=== PATIENT | male | born 1975 | race Two or more races ===

== ENCOUNTER 2017-01-10 19:24 | Emergency (ER) | payer SELFPAY ==
[~2017-01-10] VITALS: Ht 170.2 cm; Wt 83.9 kg
[~2017-01-10 19:24] MED LIST: ALPR1TAB6 PO; BUSP5TAB PO; CYCL10TA2 PO; DULO60CA6 PO; GEMF600T3 PO; HYDR-971 PO; IBUP-1007 PO; METH-37 PO; PANT40TA3 PO; PARO10TA24 PO; PRED20TA PO; PSEU120T9 PO; RANI150T6 PO; VENL75CA PO
[2017-01-10 19:35] VITALS: BP 124/74
[2017-01-10] MEDS ORDERED: TRAM-29 PO (19:54)
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
== END 2017-01-10 20:00 | disposition home or self-care (01) ==
LOC: ER 19:24
DX: G89.29 Other chronic pain (principal); M54.40 Lumbago with sciatica, unspecified side; M54.2 Cervicalgia; F43.10 Post-traumatic stress disorder, unspecified; E78.00 Pure hypercholesterolemia, unspecified; Z98.890 Other specified postprocedural states
CPT/HCPCS: 99283

== ENCOUNTER 2017-03-03 22:14 | Emergency (ER) | payer SELFPAY ==
[~2017-03-03] VITALS: Ht 170.2 cm; Wt 86.2 kg
[~2017-03-03 22:14] MED LIST changes: +BUSP15TA PO; +CLON0.5T3 PO; +DULO30CA43 PO; -PARO10TA24 PO; +PARO10TA57 PO; +TRAM-48 PO
[2017-03-03 22:25] VITALS: BP 134/87
[2017-03-03] MEDS ORDERED: CYCLOBENZAPRINE 10 MG TABLET. PO ONE (22:45)
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
[2017-03-03] MEDS ORDERED: CYCL10TA2 PO (23:34)
== END 2017-03-03 23:54 | disposition home or self-care (01) ==
LOC: ER 22:14
DX: R51 Headache (principal); M54.5 Low back pain; M54.2 Cervicalgia; E78.00 Pure hypercholesterolemia, unspecified; G89.29 Other chronic pain; F43.10 Post-traumatic stress disorder, unspecified; V57.6XXA Passenger in pick-up truck or van injured in collision with fixed or stationary object in traffic accident, initial encounter; Y93.89 Activity, other specified; Y92.410 Unspecified street and highway as the place of occurrence of the external cause; Y99.8 Other external cause status
CPT/HCPCS: 70450; 70486; 72125; 99284-25

== ENCOUNTER 2017-03-10 21:07 | Emergency (ER) | payer SELFPAY ==
[~2017-03-10] VITALS: Ht 170.2 cm; Wt 83.9 kg
[2017-03-10 21:18] VITALS: BP 129/75
[2017-03-10] MEDS ORDERED: CYCL10TA2 PO (21:42)
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
== END 2017-03-10 21:50 | disposition home or self-care (01) ==
LOC: ER 21:07
DX: M54.42 Lumbago with sciatica, left side (principal); G89.29 Other chronic pain; E78.00 Pure hypercholesterolemia, unspecified; F43.10 Post-traumatic stress disorder, unspecified; Z86.14 Personal history of Methicillin resistant Staphylococcus aureus infection; Z98.890 Other specified postprocedural states; V49.88XA Car occupant (driver) (passenger) injured in other specified transport accidents, initial encounter; Y93.89 Activity, other specified; Y99.8 Other external cause status; Y92.488 Other paved roadways as the place of occurrence of the external cause
CPT/HCPCS: 99283

== ENCOUNTER 2017-06-08 21:15 | Emergency (ER) | payer SELFPAY ==
[2017-06-08 21:22] VITALS: BP 120/78
[2017-06-08] MEDS ORDERED: SULF1TAB24 PO (21:38)
--- NOTE | 2017-06-08 21:38 | PHYS DOC ---
Past Medical History Past Medical History: Anxiety, Depression, High Cholesterol, MRSA, Other Additional Past Medical Histor: PTSD, CHRONIC BACK PAIN, SCIATICA, MRSA Past Surgical History: Other Additional Past Surgical Histo: R THIGH SX Alcohol Use: None Drug Use: None Adult General Chief Complaint Chief Complaint: ABSCESS HPI HPI Patient is a 41 year old male who presents to be evaluated for an abscess on the left groin that he noted this morning. Patient states the abscess "busted up " this morning and is draining. Patient denies any fever. He states he has history of MRSA. Review of Systems Review of Systems Constitutional: See history of present illness Musculoskeletal: Denies back pain or joint pain [] Integument: abscess on the left groin Neurologic: Denies headache, focal weakness or sensory changes [] Allergies Allergies Allergies Coded Allergies Type Severity Reaction Last Updated Verified No Known Drug Allergies 04/28/14 No Physical Exam Physical Exam Constitutional: Well developed, well nourished, no acute distress, non-toxic appearance. [] Skin: Left inner thigh with a tiny open Abscess approximately 0.3 x 0.3 cm with surrounding cellulitis. The area is warm tender to touch but not fluctuant Back: No tenderness, no CVA tenderness. [] Extremities: No tenderness, no cyanosis, no clubbing, ROM intact, no edema. [] Neurologic: Alert and oriented X 3, normal motor function, normal sensory function, no focal deficits noted. [] Psychologic: Affect normal, judgement normal, mood normal. [] Current Patient Data Vital Signs Vital Signs Date Time Temp Pulse Resp B/P (MAP) Pulse Ox O2 Delivery O2 Flow Rate FiO2 06/08/17 21:22 97.9 70 18 99 Room Air 97.9 EKG EKG [] Radiology/Procedures Radiology/Procedures [] Course & Med Decision Making Course & Med Decision Making Pertinent Labs and Imaging studies reviewed. (See chart for details) Patient has an abscess on the left inner thigh that is open and draining. His tetanus is up-to-date. He has history of MRSA. We discharged him on Bactrim. Instructed to keep the area clean and dry. Provided return precautions and discharged in stable condition. Dragon Disclaimer Dragon Disclaimer This electronic medical record was generated, in whole or in part, using a voice recognition dictation system. Departure Departure Impression: Primary Impression: Cellulitis and abscess of left lower extremity Disposition: HOME, SELF-CARE Condition: STABLE Referrals: ANDREI MUNOZ MD (PCP) Follow-up with your doctor in 1-2 weeks Patient Instructions: Abscess Additional Instructions: You were seen for an abscess on the left inner thigh. Keep the area clean and dry. Apply warm compresses to the area twice a day. Take antibiotics as prescribed until completed. Return to the emergency room if symptoms worsen. Scripts Sulfamethoxazole/Trimethoprim (BACTRIM DS TABLET) 1 Each Tablet 1 TAB PO BID, #20 TAB Prov: WAYLON KONG APRN 06/08/17 WAYLON KONG APRN Jun 08, 2017 21:38
== END 2017-06-08 21:38 | disposition home or self-care (01) ==
LOC: ER 21:15
DX: L03.116 Cellulitis of left lower limb (principal); E78.00 Pure hypercholesterolemia, unspecified; F43.10 Post-traumatic stress disorder, unspecified; Z86.14 Personal history of Methicillin resistant Staphylococcus aureus infection; G89.29 Other chronic pain
CPT/HCPCS: 99283

== ENCOUNTER 2019-11-19 15:08 | Emergency (ER) | payer SELFPAY ==
[~2019-11-19] VITALS: Ht 170.2 cm; Wt 90.0 kg
[~2019-11-19 15:08] MED LIST changes: +ASPI-630 PO; +CLON-77 PO; -CLON0.5T3 PO; -DULO30CA43 PO; +DULO30CA44 PO; -GEMF600T3 PO; +GEMF600T8 PO; +HYDR-3164 PO; -HYDR-971 PO; -PANT40TA3 PO; +PANT40TA77 PO; +RANI-376 PO; -RANI150T6 PO; +SULF1TAB24 PO
[2019-11-19] MEDS ORDERED: IV NORMAL SALINE 1000ML BAG 1,000 ML IV ONE (16:00)
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
[2019-11-19 16:16] LABS: BASO # 0.1 x10^3/uL (0.0-0.2); BASO % 1 % (0-3); EOS # 0.2 x10^3/uL (0.0-0.7); EOS % 4 % (0-3); HEMATOCRIT 42.1 % (39.0-53.0); HEMOGLOBIN 14.2 g/dL (13.0-17.5); LYMPH % 33 % (24-48); MEAN CORPUSCULAR HEMOGLOBIN 33 pg (25-35); MEAN CORPUSCULAR HGB CONC 34 g/dL (31-37); MEAN CORPUSCULAR VOLUME 97 fL (79-100); MONO # 0.5 x10^3/uL (0.0-1.1); MONO % 8 % (0-9); NEUT # 3.4 x10^3/uL (1.8-7.7); NEUT % 55 % (31-73); PLATELET COUNT 220 x10^3/uL (140-400); RED BLOOD COUNT 4.34 x10^6/uL (4.30-5.70); RED CELL DISTRIBUTION WIDTH 13.6 % (11.5-14.5); WHITE BLOOD COUNT 6.1 x10^3/uL (4.0-11.0)
[2019-11-19 16:28] LABS: CALCIUM 8.9 mg/dL (8.5-10.1); CREATININE 1.1 mg/dL (0.7-1.3); GFR 72.4; POTASSIUM 4.5 mmol/L (3.5-5.1)
[2019-11-19 16:40] LABS: TOTAL BILIRUBIN 0.2 mg/dL (0.2-1.0); TOTAL PROTEIN 8.2 g/dL (6.4-8.2)
[2019-11-19] MEDS ORDERED: IOHEXOL 300 MG/ML 100ML VIAL. IV ONE (16:45)
[2019-11-19] MEDS ORDERED: CONTRAST GIVEN. MC PRN (16:45)
--- NOTE | 2019-11-19 17:11 | RAD ---
Exam: CT of abdomen and pelvis with contrast INDICATION: Wound over left lower back, concern for deep abscess TECHNIQUE: Sequential axial images through the abdomen and pelvis obtained following the administration of 75 mL of Omni 300 IV contrast. Sagittal and coronal reformatted images were reconstructed from the axial data and reviewed. Comparisons: None FINDINGS: Heart size is normal. No pericardial effusion. Strandy opacities at the dependent portion lungs likely representing atelectasis. No pleural effusion. Liver, spleen, pancreas, gallbladder and adrenals are unremarkable. Kidneys demonstrate symmetric enhancement. No perinephric inflammation or hydronephrosis. No renal or ureteral calculi are identified. Bladder is decompressed not well evaluated. Prostate is not enlarged. Extensive diverticulosis is noted throughout the descending colon without evidence of acute diverticulitis. Appendix is normal. No free intra-abdominal air or fluid. No obstruction. Abdominal aorta has a normal course and caliber. Abdominal vasculature is patent. No enlarged intra-abdominal lymph nodes are identified. Subcutaneous fat stranding is noted in the left lower back. Mild skin thickening is also noted. No focal fluid collection is identified. No suspicious osseous lesions or acute fractures. IMPRESSION: Skin thickening and underlying subcutaneous fat stranding in the left lower back. Findings may relate to cellulitis. No focal fluid collections suggest abscess. Exposure: One or more of the following in the visualized dose reduction techniques were utilized for this examination: 1. Automated exposure control 2. Adjustment of the MA and/or KV according to patient size 3. Use of iterative of reconstructive technique Electronically signed by: Alex Vinson MD (11/19/2019 5:08 PM) [id number]
[2019-11-19] MEDS ORDERED: CEPH-264 PO (17:17)
[2019-11-19] MEDS ORDERED: DOXY100C2 PO (17:17)
[2019-11-19 18:00] VITALS: BP 127/73
== END 2019-11-19 18:10 | disposition home or self-care (01) ==
LOC: ER 15:08
DX: S31.000A Unspecified open wound of lower back and pelvis without penetration into retroperitoneum, initial encounter (principal); L03.312 Cellulitis of back [any part except buttock and flank]; E78.00 Pure hypercholesterolemia, unspecified; G89.29 Other chronic pain; Z86.14 Personal history of Methicillin resistant Staphylococcus aureus infection; F43.10 Post-traumatic stress disorder, unspecified; F17.200 Nicotine dependence, unspecified, uncomplicated; X58.XXXA Exposure to other specified factors, initial encounter; Y93.89 Activity, other specified; Y92.89 Other specified places as the place of occurrence of the external cause; Y99.8 Other external cause status
CPT/HCPCS: 36415; 74177; 80053; 85025; 99285; J7030; Q9967

== ENCOUNTER 2020-01-11 20:50 | Emergency (ER) | payer OTHER ==
[~2020-01-11] VITALS: Ht 170.2 cm; Wt 86.2 kg
[~2020-01-11 20:50] MED LIST changes: +CEPH-264 PO; +DOXY100C2 PO
[2020-01-11] MEDS ORDERED: ZIPRASIDONE IM 20 MG VIAL. IM ONE ×2 (20:58→21:15)
[2020-01-11 21:16] LABS: BILIRUBIN,URINE NEGATIVE (NEG); CLARITY,URINE CLEAR; COLOR,URINE YELLOW; NITRITE,URINE NEGATIVE (NEG); PH,URINE 5.5 (<5.0-8.0); PROTEIN,URINE NEGATIVE (NEG-TRACE); UROBILINOGEN,URINE 0.2 mg/dL (0.2 mg/dL)
[2020-01-11 21:23] LABS: BACTERIA,URINE 0 /HPF (0-FEW); RBC,URINE 0 /HPF (0-2); SQUAMOUS EPITHELIAL CELL,UR OCC /LPF; WBC,URINE 0 /HPF (0-4)
[2020-01-11 21:27] LABS: BARBITURATES NEG (NEG); BENZODIAZEPINES NEG (NEG); CANNABINOIDS NEG (NEG); COCAINE NEG (NEG); METHADONE NEG (NEG); OPIATES NEG (NEG); PHENCYCLIDINE NEG (NEG)
[2020-01-11 21:29] LABS: AMPHETAMINE/METHAMPHETAMINE NEG (NEG)
[2020-01-11] MEDS ORDERED: LORazepam 0.5 MG TABLET PO ONE (21:30)
[2020-01-11 21:35] LABS: BASO # 0.1 x10^3/uL (0.0-0.2); BASO % 1 % (0-3); EOS # 0.1 x10^3/uL (0.0-0.7); EOS % 1 % (0-3); HEMOGLOBIN 15.1 g/dL (13.0-17.5); LYMPH # 1.8 x10^3/uL (1.0-4.8); LYMPH % 28 % (24-48); MEAN CORPUSCULAR HEMOGLOBIN 31 pg (25-35); MEAN CORPUSCULAR HGB CONC 34 g/dL (31-37); MEAN CORPUSCULAR VOLUME 93 fL (79-100); MONO # 0.4 x10^3/uL (0.0-1.1); MONO % 6 % (0-9); NEUT # 4.2 x10^3/uL (1.8-7.7); NEUT % 65 % (31-73); PLATELET COUNT 262 x10^3/uL (140-400); RED BLOOD COUNT 4.81 x10^6/uL (4.30-5.70); WHITE BLOOD COUNT 6.6 x10^3/uL (4.0-11.0)
[2020-01-11 21:45] LABS: CALCIUM 8.7 mg/dL (8.5-10.1); GFR 80.8; POTASSIUM 3.3 mmol/L (3.5-5.1)
[2020-01-11] MEDS ORDERED: MULTIVIT INFUSN,ADULT 4,VIT K 10 ML, FOLIC ACID INJ 1 MG in IV NORMAL SALINE 1000ML BAG... IV ONE (21:45)
[2020-01-11 21:51] LABS: ALBUMIN 3.8 g/dL (3.4-5.0); DIRECT BILIRUBIN 0.1 mg/dL (0.0-0.2); MAGNESIUM 1.7 mg/dL (1.8-2.4); TOTAL BILIRUBIN 0.2 mg/dL (0.2-1.0); TOTAL PROTEIN 7.8 g/dL (6.4-8.2)
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
[2020-01-11] MEDS ORDERED: IV NORMAL SALINE 1000ML BAG 1,000 ML IV ONE (23:00)
[2020-01-12 05:46] VITALS: BP 111/58
--- NOTE | 2020-01-14 08:35 | EKG ---
[facility] [address] [place] [address] Test Date: 2020-01-11 Test Time: 21:35:11 Pat Name: CHITO BOBO Department: Room: Gender: M [employer]: : 1975 Requested By: MERA SALEH Order Number: [id number] Reading MD: Mark Manning Measurements Intervals [place] Rate: 97 P: 42 ND: 126 QRS: 39 QRSD: 108 T: 12 QT: 354 QTc: 454 Interpretive Statements SINUS RHYTHM Electronically Signed On 01-14-2020 10:58:49 CDT by Mark Manning
== END 2020-01-12 06:00 | disposition home or self-care (01) ==
LOC: ER 20:50
DX: F10.920 Alcohol use, unspecified with intoxication, uncomplicated (principal); F43.0 Acute stress reaction; F32.9 Major depressive disorder, single episode, unspecified; E78.00 Pure hypercholesterolemia, unspecified; G89.29 Other chronic pain; F43.10 Post-traumatic stress disorder, unspecified; F17.200 Nicotine dependence, unspecified, uncomplicated; Z86.14 Personal history of Methicillin resistant Staphylococcus aureus infection
CPT/HCPCS: 36415; 80048; 80076; 80307; 81001; 83735; 85025; 96365; 96372; 99285; G0480; J3486; J3490; J7030; 93005

== ENCOUNTER 2020-03-03 21:20 | Observation (INO) | payer OTHER ==
[~2020-03-03] VITALS: Ht 167.6 cm; Wt 75.0 kg
[2020-03-03] MEDS ORDERED: IV NORMAL SALINE 1000ML BAG 1,000 ML IV ONE ×2 (21:30→23:15)
[2020-03-03 21:44] LABS: BASO # 0.1 x10^3/uL (0.0-0.2); BASO % 1 % (0-3); EOS % 0 % (0-3); HEMATOCRIT 45.6 % (39.0-53.0); HEMOGLOBIN 15.7 g/dL (13.0-17.5); LYMPH # 2.5 x10^3/uL (1.0-4.8); LYMPH % 22 % (24-48); MEAN CORPUSCULAR HEMOGLOBIN 31 pg (25-35); MEAN CORPUSCULAR HGB CONC 34 g/dL (31-37); MEAN CORPUSCULAR VOLUME 91 fL (79-100); MONO # 1.1 x10^3/uL (0.0-1.1); MONO % 9 % (0-9); NEUT % 68 % (31-73); PLATELET COUNT 289 x10^3/uL (140-400); RED BLOOD COUNT 5.02 x10^6/uL (4.30-5.70); RED CELL DISTRIBUTION WIDTH 14.4 % (11.5-14.5); WHITE BLOOD COUNT 11.7 x10^3/uL (4.0-11.0)
--- NOTE | 2020-03-03 21:47 | PHYS DOC ---
Past Medical History Past Medical History: Anxiety, Depression, High Cholesterol, MRSA, Other Additional Past Medical Histor: PTSD, CHRONIC BACK PAIN, SCIATICA, ETOH, Past Surgical History: Other Additional Past Surgical Histo: R THIGH SX Smoking Status: Current Every Day Smoker Alcohol Use: Heavy Drug Use: Other General Adult EDM: Chief Complaint: ALTERED MENTAL STATUS HPI: HPI: 44-year-old male presents via EMS for evaluation of altered mental status. Per history patient has not been acting his normal self for the last 4 hours. EMS states patient has a history of psychiatric disorder. The exact medications patient is on is unknown. Patient is very lethargic but he is alert. Patient has no focal neurological deficits. Patient denies any pain. Patient admits to smoking meth. After observation- patient admitted to nursing that he was SI. Patient is more alert Patient confirmed SI but denies plan. Further history obtained by significant other. Patient with history of PTSD. Patient has had recent SI attempt. Review of Systems: Review of Systems: Constitutional: Denies fever or chills. [] Eyes: Denies change in visual acuity. [] HENT: Denies nasal congestion or sore throat. [] Respiratory: Denies cough or shortness of breath. [] Cardiovascular: Denies chest pain or edema. [] GI: Denies abdominal pain, nausea, vomiting, bloody stools or diarrhea. [] : Denies dysuria. [] Musculoskeletal: Denies back pain or joint pain. [] Integument: Denies rash. [] Neurologic: Denies headache, focal weakness or sensory changes. [] Endocrine: Denies polyuria or polydipsia. [] Lymphatic: Denies swollen glands. [] Psychiatric: Denies depression or anxiety. [] Heart Score: Risk Factors: Risk Factors: DM, Current or recent (<one month) smoker, HTN, HLP, family history of CAD, obesity. Risk Scores: Score 0 - 3: 2.5% MACE over next 6 weeks - Discharge Home Score 4 - 6: 20.3% MACE over next 6 weeks - Admit for Clinical Observation Score 7 - 10: 72.7% MACE over next 6 weeks - Early Invasive Strategies Current Medications: Current Medications Medications (Trade) Dose Ordered Sig/Miracle Start Time Stop Time Status Last Admin Dose Admin Sodium Chloride 1,000 ml @ 1,000 mls/hr 1X ONCE 03/03/20 21:30 03/03/20 22:29 Allergies: Allergies: Allergies Coded Allergies Type Severity Reaction Last Updated Verified No Known Drug Allergies 04/28/14 No Physical Exam: PE: Constitutional:no acute distress, non-toxic appearance. [] HENT: Normocephalic, atraumatic, bilateral external ears normal, o] Eyes: EOMI, conjunctiva normal, no discharge. [] Neck: Normal range of motion, no tenderness, supple, no stridor. [] Cardiovascular:Heart rate regular rhythm, no murmur [] Lungs & Thorax: no respiratory distress Abdomen: Bowel sounds normal, soft, no tenderness, Skin: Warm, dry, no erythema, no rash. [] Back: No tenderness, no CVA tenderness. [] Extremities: No tenderness, no cyanosis, no clubbing, ROM intact, no edema. [] Neurologic: Alert, normal motor function, , no focal deficits noted. [] Psychologic: abnromal affect, while not make direct eye contact, soft spoken, States Suicidal Ideation EKG: EKG: [] Radiology/Procedures: Radiology/Procedures: [] Course & Med Decision Making: Course & Med Decision Making Pertinent Labs and Imaging studies reviewed. (See chart for details) [] Patient was evaluated for chief complaint. Work-up consisted of laboratory analysis. Results reviewed. Patient noted to have a creatinine of 1.7. Patient noted to have a CPK of greater than 70,000. Patient endorsed suicidal ideation.. At this time patient is not medically cleared. He will be admitted to the hospitalist for further evaluation and treatment. Naomi Disclaimer: Naomi Disclaimer: This electronic medical record was generated, in whole or in part, using a voice recognition dictation system. Departure Departure Impression: Primary Impression: Rhabdomyolysis Additional Impressions: Suicidal ideation Methamphetamine abuse Disposition: ADMITTED INPATIENT Admitting Physician: HIMS Referrals: UNKNOWN PCP NAME (PCP) Justicifation of Admission Dx: Justifications for Admission: Justification of Admission Dx: Yes Altered Mental Status: Altered Mental Status Comments: Suicidal ideation, acute rhabdomyolysis ERNESTO ELAINE DO Mar 03, 2020 21:47
[2020-03-03 22:00] LABS: CALCIUM 8.9 mg/dL (8.5-10.1); CREATININE 1.7 mg/dL (0.7-1.3); GFR 43.8; POTASSIUM 3.6 mmol/L (3.5-5.1)
[2020-03-03 22:01] LABS: BARBITURATES NEG (NEG); BENZODIAZEPINES NEG (NEG); CANNABINOIDS NEG (NEG); COCAINE NEG (NEG); METHADONE NEG (NEG); OPIATES NEG (NEG); PHENCYCLIDINE NEG (NEG)
[2020-03-03 22:06] LABS: ALBUMIN 4.1 g/dL (3.4-5.0); ALBUMIN/GLOBULIN RATIO 0.9 (1.0-1.7); TOTAL BILIRUBIN 0.8 mg/dL (0.2-1.0); TOTAL PROTEIN 8.5 g/dL (6.4-8.2)
[2020-03-03 22:08] LABS: ACETAMIN < 2.0 mcg/ml (10-30); SALIC 14.8 mg/dL (2.8-20.0)
[2020-03-03 22:09] LABS: AMPHETAMINE/METHAMPHETAMINE POS (NEG)
[2020-03-04] MEDS ORDERED: IV NORMAL SALINE 1000ML BAG 1,000 ML IV ONE (05:45)
[2020-03-04 05:50] VITALS: BP 149/70
--- NOTE | 2020-03-04 10:20 | EKG ---
[facility] [address] [place] [address] Test Date: 2020-03-03 Test Time: 21:53:29 Pat Name: CHITO BOBO Department: Room: Gender: M Extender: : 1975 Requested By: ERNESTO ELAINE Order Number: [id number] Reading MD: Measurements Intervals [place] Rate: 99 P: 62 CT: 126 QRS: 70 QRSD: 98 T: 34 QT: 342 QTc: 444 Interpretive Statements SINUS RHYTHM NORMAL ECG RI6.02 No previous ECG available for comparison
== END 2020-03-04 06:30 | disposition left against medical advice (07) ==
LOC: ER 21:20 → ED HOLD 23:17
PROVIDERS: ADMIT Family Medicine; ATTEND Family Medicine
DX: M62.82 Rhabdomyolysis (principal); R45.851 Suicidal ideations; R41.82 Altered mental status, unspecified; F41.9 Anxiety disorder, unspecified; F32.9 Major depressive disorder, single episode, unspecified; F43.10 Post-traumatic stress disorder, unspecified; M54.30 Sciatica, unspecified side; F15.10 Other stimulant abuse, uncomplicated; E78.00 Pure hypercholesterolemia, unspecified; Z72.0 Tobacco use
CPT/HCPCS: 36415; 80053; 80307; 80329; 82550; 84484; 85025; 93005; G0378; G0379; G0480; J7030

== ENCOUNTER 2020-03-07 02:45 | Emergency (ER) | payer OTHER ==
[~2020-03-07] VITALS: Ht 175.3 cm; Wt 75.0 kg
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
[2020-03-07 03:08] LABS: BASO % 1 % (0-3); EOS # 0.1 x10^3/uL (0.0-0.7); EOS % 2 % (0-3); HEMATOCRIT 41.7 % (39.0-53.0); HEMOGLOBIN 14.4 g/dL (13.0-17.5); LYMPH # 1.6 x10^3/uL (1.0-4.8); LYMPH % 28 % (24-48); MEAN CORPUSCULAR HEMOGLOBIN 32 pg (25-35); MEAN CORPUSCULAR HGB CONC 34 g/dL (31-37); MEAN CORPUSCULAR VOLUME 92 fL (79-100); MONO # 0.4 x10^3/uL (0.0-1.1); MONO % 7 % (0-9); NEUT # 3.7 x10^3/uL (1.8-7.7); NEUT % 63 % (31-73); PLATELET COUNT 272 x10^3/uL (140-400); RED BLOOD COUNT 4.52 x10^6/uL (4.30-5.70); RED CELL DISTRIBUTION WIDTH 14.2 % (11.5-14.5); WHITE BLOOD COUNT 5.9 x10^3/uL (4.0-11.0)
[2020-03-07 03:20] LABS: ALBUMIN 3.9 g/dL (3.4-5.0); CALCIUM 8.7 mg/dL (8.5-10.1); CREATININE 1.2 mg/dL (0.7-1.3); GFR 65.5; TOTAL PROTEIN 7.7 g/dL (6.4-8.2)
[2020-03-07] MEDS ORDERED: IV NORMAL SALINE 1000ML BAG 1,000 ML IV ONE (03:30)
[2020-03-07] MEDS ORDERED: METOCLOPRAMIDE HCL 10 MG/2 ML VIAL. ONE (03:32)
[2020-03-07 03:33] LABS: POTASSIUM 2.7 mmol/L (3.5-5.1)
[2020-03-07] MEDS ORDERED: POTASSIUM CHLORIDE 20MEQ 100 ML IV ONE ×2 (03:45)
[2020-03-07] MEDS ORDERED: METOCLOPRAMIDE HCL 10 MG/2 ML VIAL. IVP ONE (04:00)
[2020-03-07] MEDS: POTASSIUM CHLORIDE 10MEQ 100 ML IV SCH ×4 (04:05→07:19)
--- NOTE | 2020-03-07 06:16 | RAD ---
CT brain without contrast. HISTORY: Altered mental status. CT scan of brain was done without contrast. Comparison is made with a study from February 2017. There is no intracranial hemorrhage or subdural hematoma. There is no mass or shift of the midline. Ventricles are normal in size. An acute CVA is not identified. Visualized sinuses are clear. IMPRESSION: 1. No intracranial hemorrhage or acute finding noted. PQRS Compliance Statement: One or more of the following individualized dose reduction techniques were utilized for this examination: 1. Automated exposure control 2. Adjustment of the mA and/or kV according to patient size 3. Use of iterative reconstruction technique Electronically signed by: Cali Jones MD (03/07/2020 6:13 AM) [id number]
[2020-03-07 09:50] VITALS: BP 111/70
--- NOTE | 2020-03-11 12:17 | EKG ---
[facility] [address] [place] [address] Test Date: 2020-03-07 Test Time: 03:02:32 Pat Name: CHITO BOBO Department: Room: Gender: M Medical Sales Consultant: : 1975 Requested By: KEYSHA HENSON Order Number: [id number] Reading MD: Measurements Intervals [place] Rate: 113 P: 65 SD: 114 QRS: 75 QRSD: 102 T: 41 QT: 352 QTc: 482 Interpretive Statements SINUS TACHYCARDIA OTHERWISE NORMAL ECG RI6.02 No previous ECG available for comparison
--- NOTE | 2020-03-11 19:13 | NUR ---
Late entry made to Medical Record. IV Stop time transcribed from eMAR to IV spreadsheet
== END 2020-03-07 11:32 | disposition home or self-care (01) ==
LOC: ER 02:45
DX: F15.10 Other stimulant abuse, uncomplicated (principal); E87.6 Hypokalemia; R74.0 Nonspecific elevation of levels of transaminase and lactic acid dehydrogenase [LDH]; E78.00 Pure hypercholesterolemia, unspecified; F32.9 Major depressive disorder, single episode, unspecified; F41.9 Anxiety disorder, unspecified; G89.29 Other chronic pain; F17.200 Nicotine dependence, unspecified, uncomplicated; F10.20 Alcohol dependence, uncomplicated; Y90.0 Blood alcohol level of less than 20 mg/100 ml; F43.10 Post-traumatic stress disorder, unspecified; Z86.14 Personal history of Methicillin resistant Staphylococcus aureus infection
CPT/HCPCS: 36415; 70450; 80053; 85025; 93005; 96361; 96365; 96366; 96375; 99285; G0480; J2765; J3480; J7030

== ENCOUNTER 2020-04-06 20:15 | Emergency (ER) | payer OTHER ==
[~2020-04-06] VITALS: Ht 172.7 cm; Wt 81.0 kg
[2020-04-06] MEDS ORDERED: ZIPRASIDONE IM 20 MG VIAL. IM ONE (20:30)
[2020-04-06] MEDS ORDERED: IV NORMAL SALINE 1000ML BAG 1,000 ML IV ONE ×3 (20:30→23:00)
[2020-04-06 21:05] LABS: BASO # 0.1 x10^3/uL (0.0-0.2); BASO % 0 % (0-3); EOS # 0.1 x10^3/uL (0.0-0.7); EOS % 0 % (0-3); HEMATOCRIT 44.3 % (39.0-53.0); HEMOGLOBIN 14.5 g/dL (13.0-17.5); LYMPH % 8 % (24-48); MEAN CORPUSCULAR HEMOGLOBIN 31 pg (25-35); MEAN CORPUSCULAR HGB CONC 33 g/dL (31-37); MEAN CORPUSCULAR VOLUME 95 fL (79-100); MONO # 0.5 x10^3/uL (0.0-1.1); MONO % 4 % (0-9); NEUT # 10.4 x10^3/uL (1.8-7.7); NEUT % 87 % (31-73); PLATELET COUNT 314 x10^3/uL (140-400); RED BLOOD COUNT 4.64 x10^6/uL (4.30-5.70); RED CELL DISTRIBUTION WIDTH 14.7 % (11.5-14.5)
[2020-04-06 21:08] LABS: BILIRUBIN,URINE NEGATIVE (NEG); CLARITY,URINE CLOUDY; COLOR,URINE YELLOW; NITRITE,URINE NEGATIVE (NEG); PH,URINE 5.5 (<5.0-8.0); PROTEIN,URINE 100 mg/dL (NEG-TRACE); UROBILINOGEN,URINE 0.2 mg/dL (0.2 mg/dL)
[2020-04-06 21:11] LABS: CALCIUM 8.9 mg/dL (8.5-10.1); CREATININE 1.7 mg/dL (0.7-1.3); GFR 43.8; POTASSIUM 3.5 mmol/L (3.5-5.1)
[2020-04-06 21:13] LABS: BARBITURATES NEG (NEG); BENZODIAZEPINES NEG (NEG); CANNABINOIDS NEG (NEG); COCAINE NEG (NEG); METHADONE NEG (NEG); OPIATES NEG (NEG); PHENCYCLIDINE NEG (NEG)
[2020-04-06 21:14] LABS: AMPHETAMINE/METHAMPHETAMINE POS (NEG)
[2020-04-06 21:15] LABS: ACETAMIN < 2 mcg/ml (10-30); ETHANOL < 10 mg/dL (0-10); SALIC 3.2 mg/dL (2.8-20.0)
[2020-04-06 21:17] LABS: ALBUMIN 4.2 g/dL (3.4-5.0); MAGNESIUM 2.6 mg/dL (1.8-2.4); TOTAL BILIRUBIN 0.3 mg/dL (0.2-1.0); TOTAL PROTEIN 8.5 g/dL (6.4-8.2)
[2020-04-06 21:18] LABS: AMORPHOUS SEDIMENT,UR PRESENT /HPF; BACTERIA,URINE 0 /HPF (0-FEW)
[2020-04-06 21:27] LABS: % BANDS 1 % (0-9); % LYMPHS 9 % (24-48); % MONOS 2 % (0-10); % SEGS 88 % (35-66); PLT ESTIMATE ADEQUATE (ADEQUATE)
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
[2020-04-07 02:35] VITALS: BP 142/89
--- NOTE | 2020-04-08 07:06 | EKG ---
[facility] [address] [place] [address] Test Date: 2020-04-06 Test Time: 20:53:08 Pat Name: CHITO BOBO Department: Room: Gender: M Jira Developer: : 1975 Requested By: HAO DÍAZ Order Number: [id number] Reading MD: Measurements Intervals [place] Rate: 130 P: -62 MS: 86 QRS: 59 QRSD: 102 T: 30 QT: 320 QTc: 478 Interpretive Statements SUPRAVENTRICULAR RHYTHM OTHERWISE NORMAL ECG RI6.02 No previous ECG available for comparison
== END 2020-04-07 02:40 | disposition home or self-care (01) ==
LOC: ER 20:15
DX: S00.12XA Contusion of left eyelid and periocular area, initial encounter (principal); F15.129 Other stimulant abuse with intoxication, unspecified; E87.2 Acidosis; R41.82 Altered mental status, unspecified; R00.0 Tachycardia, unspecified; E78.00 Pure hypercholesterolemia, unspecified; G89.29 Other chronic pain; F32.9 Major depressive disorder, single episode, unspecified; F41.9 Anxiety disorder, unspecified; F43.10 Post-traumatic stress disorder, unspecified; F17.200 Nicotine dependence, unspecified, uncomplicated; F10.20 Alcohol dependence, uncomplicated; Y90.9 Presence of alcohol in blood, level not specified; Y04.0XXA Assault by unarmed brawl or fight, initial encounter; Y93.89 Activity, other specified; Y92.89 Other specified places as the place of occurrence of the external cause; Y99.8 Other external cause status
CPT/HCPCS: 36415; 80053; 80307; 80329; 81001; 82550; 83605; 83735; 85007; 85025; 93005; 96360; 96361; 96372; 99285; G0480; J3486; J7030

== ENCOUNTER 2020-05-15 07:32 | Emergency (ER) | payer OTHER ==
[~2020-05-15] VITALS: Ht 170.2 cm; Wt 82.0 kg
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
[2020-05-15 08:29] LABS: BASO # 0.1 x10^3/uL (0.0-0.2); BASO % 1 % (0-3); EOS % 0 % (0-3); HEMATOCRIT 43.4 % (39.0-53.0); LYMPH # 1.4 x10^3/uL (1.0-4.8); LYMPH % 14 % (24-48); MEAN CORPUSCULAR HEMOGLOBIN 32 pg (25-35); MEAN CORPUSCULAR HGB CONC 35 g/dL (31-37); MEAN CORPUSCULAR VOLUME 94 fL (79-100); MONO # 0.9 x10^3/uL (0.0-1.1); MONO % 9 % (0-9); NEUT # 8.1 x10^3/uL (1.8-7.7); NEUT % 77 % (31-73); PLATELET COUNT 274 x10^3/uL (140-400); RED BLOOD COUNT 4.64 x10^6/uL (4.30-5.70); RED CELL DISTRIBUTION WIDTH 13.8 % (11.5-14.5); WHITE BLOOD COUNT 10.6 x10^3/uL (4.0-11.0)
[2020-05-15] MEDS ORDERED: DIPH,PERTUSS(ACELL),TET VAC/PF 0.5 ML SYRINGE. VAX IM ONE (08:30)
[2020-05-15 08:40] VITALS: BP 127/68
[2020-05-15 08:40] LABS: CALCIUM 9.2 mg/dL (8.5-10.1); CREATININE 1.4 mg/dL (0.7-1.3); GFR 54.8; POTASSIUM 3.6 mmol/L (3.5-5.1); PROTHROMBIN TIME PATIENT 13.6 SEC (11.7-14.0)
[2020-05-15 08:46] LABS: ALBUMIN 4.1 g/dL (3.4-5.0); ALBUMIN/GLOBULIN RATIO 0.9 (1.0-1.7); TOTAL BILIRUBIN 0.9 mg/dL (0.2-1.0); TOTAL PROTEIN 8.5 g/dL (6.4-8.2)
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
== END 2020-05-15 08:55 | disposition short-term general hospital (02) ==
LOC: ER 07:32
DX: S01.311A Laceration without foreign body of right ear, initial encounter (principal); S51.811A Laceration without foreign body of right forearm, initial encounter; S80.02XA Contusion of left knee, initial encounter; S09.90XA Unspecified injury of head, initial encounter; R51 Headache; F17.200 Nicotine dependence, unspecified, uncomplicated; E78.00 Pure hypercholesterolemia, unspecified; G89.29 Other chronic pain; F10.20 Alcohol dependence, uncomplicated; Y90.0 Blood alcohol level of less than 20 mg/100 ml; Z86.14 Personal history of Methicillin resistant Staphylococcus aureus infection; X99.1XXA Assault by knife, initial encounter; Y93.89 Activity, other specified; Y92.89 Other specified places as the place of occurrence of the external cause; Y99.8 Other external cause status
CPT/HCPCS: 36415; 71045; 73562; 80053; 83690; 85025; 85610; 85730; 90471; 90715; 96374; 99285; G0480; J0690